=== PATIENT | male | born 1950 | race Caucasian/White ===

== ENCOUNTER 2023-09-25 19:20 | Emergency (ER) | payer MEDICARE, BC ==
[2023-09-25] MEDS: Lidocaine 1% 5 ML VIAL INJECT ONE (20:05)
[2023-09-25] MEDS: Bacitracin Oint 1 GM U/D Packet TOP ONE (20:40)
[2023-09-25] MEDS: Take Home: Amoxicillin/Clavulanate K 875-125 MG Tab, 2 Tab Pack PO ONE (20:49)
== END 2023-09-25 20:15 | disposition home or self-care (01) ==
LOC: CC.ED 19:20
DX: S61.422A Laceration with foreign body of left hand, initial encounter (principal); W45.8XXA Other foreign body or object entering through skin, initial encounter; Z88.1 Allergy status to other antibiotic agents
CPT/HCPCS: 10120; 73130-LT; 99283-25; A9270-GY; J3490